=== PATIENT | female | born 2005 | race Caucasian/White ===

== ENCOUNTER 2024-06-30 12:54 | Emergency (ER) | payer OTHER, SELFPAY ==
--- NOTE | 2024-06-30 12:55 | ED.URI ---
HPI - URI/Sore Throat General Chief Complaint: Upper Respiratory Infection Stated Complaint: SORE THROAT/WHITE SPOTS/HEADACHE Time Seen by Provider: 06/30/24 12:55 Source: patient Mode of arrival: ambulatory Limitations: no limitations History of Present Illness HPI Narrative: Arlene is a 18-year-old female patient presenting to the clinic today with complaints of sore throat, white patches in the back or throat, fatigue, and headache x2 days. She denies any known fever but has had some chills and sweats. Denies any URI symptoms. No known exposure to anyone with COVID, flu, or strep. MD elicited complaint: sore throat and other (Headache) Related Data Home Medications Medication Instructions Recorded Confirmed loratadine 10 mg tablet mg 06/30/24 Allergies Allergy/AdvReac Type Severity Reaction Status Date / Time No Known Allergies Allergy Verified 06/30/24 13:12 Review of Systems Review of Systems: Pertinent positives per HPI. Patient denies any fever, chills, rash, visual changes, dizziness, cough, shortness of breath, chest pain, palpitations, nausea, vomiting, diarrhea, constipation, abdominal pain, or any urinary issues. PMFSH Comments At the time of my signature, I reviewed and agree with the nursing past medical, surgical, social, and family history. There is no relevant family history pertinent to the patient complaint. Exam Narrative: General: Well-developed, well nourished, in no apparent distress Head: Normocephalic, atraumatic Eyes: Pupils equally round and reactive to light bilaterally, EOM intact, sclera and conjunctive clear, no discharge, lids normal Ears: TMs intact and clear, ear canals clear, no drainage, grossly hearing normal. Nose: Nares patent, no discharge, no inflammation, no sinus tenderness. Mouth: Oral pharynx red with bilateral tonsillar enlargement with white exudate, without masses, good dentition, MMM. Neck: Supple, trachea midline, enlargement of anterior cervical nodes, no thyroid masses or goiter palpable. Cardio: Regular rate and rhythm, s1 and s2 normal, no murmur appreciated. Resp: Clear to auscultation bilaterally, no rhonchi, rales, wheezing or rubs Course Course Emergency Course: Portions of this record may have been created with voice recognition software. Level of Care: Express Care Visit Vital Signs Vital signs: Vital Signs Temperature 36.8 C 12/01/24 13:09 Pulse Rate 101 H 06/30/24 13:09 Respiratory Rate 16 06/30/24 13:09 Blood Pressure 115/63 06/30/24 13:09 Pulse Oximetry 99 06/30/24 13:09 Temperature 36.8 C 06/30/24 13:09 Pulse Rate 101 H 06/30/24 13:09 Respiratory Rate 16 06/30/24 13:09 Blood Pressure 115/63 06/30/24 13:09 Pulse Oximetry 99 06/30/24 13:09 Vital signs reviewed MDM - URI/Sore Throat MDM Narrative Medical decision making narrative: At the time of visit patient is resting comfortably on the exam table. Patient appears to be nontoxic. Labs: Strep test was obtained and was negative in the clinic today. We will send for culture. [place] testing was negative. Plan: I suspect patient has acute exudate tonsillitis. Will send in amoxicillin but recommend patient weight is 2-3 days to see if her symptoms improve as this may be viral. If symptoms are not improving she may start the antibiotics. Supportive measures were discussed with the patient and they voiced understanding discharge instructions and agrees to treatment plan. Return precautions reviewed Differential Diagnosis Differential diagnosis: Likely upper respiratory infection, otitis media, sinusitis, viral infection, bronchitis, influenza, pharyngitis and other (COVID) Lab Data Labs: Lab Results 06/30/24 06/30/24 Range/Units 13:10 13:25 POC Monoscreen Negative (Negative) POC Grp A Strep Screen Negative (Negative) Discharge Plan Discharge Clinical Impression: Acute tonsillitis Qualifiers: Pharyngitis/tonsillitis etiology: unspecified etiology Qualified Code(s): J03.90 - Acute tonsillitis, unspecified Patient Disposition: Home, Self-Care Condition: Stable Instructions: Antibiotic Form, Tonsillitis (ED) Additional Instructions: Strep test was negative. We will send strep for culture. [place] test was negative. Take prescription medications only as [id number] waiting 2-3 days to see if symptoms improve as this may be viral and if they do not improve start antibiotics at that time. Increase fluids and stay well hydrated Tylenol/motrin for pain/fever Flonase and OTC antihistamines as directed Vicks vapor rub to open sinuses Sinus rinses for congestion Cepacol spray, cough drops, throat lozenges, warm tea with honey/lemon, gargle salt water to soothe throat BRAT diet for diarrhea Clear liquids x 24 hours then advance as tolerated for nausea/vomiting Go to the ED if you develop a worsening in your condition- high fever not controlled by Tylenol or Motrin, dehydration, weakness, lethargy, shortness of breath, or chest pain. Follow up with your PCP in 3-5 days if symptoms persist. Prescriptions: New amoxicillin 500 mg capsule 500 mg PO Q12H 10 Days Qty: 20 0RF No Action loratadine 10 mg tablet Follow-up/Referrals: UNKNOWN,DOCTOR [Non-Staff] - Time of Disposition: 13:33 Quality NIHSS Nursing Documentation ED NIHSS nursing documentation: reviewed/agree
[2024-06-30 13:09] VITALS: BP 115/63; PULSE 101; RESP 16; TEMP 36.8; O2SAT 99
[2024-06-30 13:21] LABS: EDSTREPNEGPOS1 Negative (Negative)
[2024-06-30 13:33] LABS: EDMONONEGPOS Negative (Negative)
== END 2024-06-30 13:42 | disposition home or self-care (01) ==
PROVIDERS: Emergency Provider Nurse Practitioner Family
DX: J03.90 Acute tonsillitis, unspecified (principal)
CPT/HCPCS: 36416; 86308; 87081; 87880; 99213; G0463